=== PATIENT | female | born 1975 | race African-American/Black ===

== ENCOUNTER 2017-08-05 19:58 | Emergency (ER) | payer OTHER ==
[2017-08-05 20:09] VITALS: BP 150/95; PULSE 95; TEMP 98.5; BMI 30.2
--- NOTE | 2017-08-05 21:26 | PDOC ---
History of Present Illness - General Chief Complaint: Pain Stated Complaint: NUMBNESS Time Seen by Provider: 08/05/17 20:48 - History of Present Illness Initial Comments: 08/05/17 21:51 Ms. Marcano is a 42 yo female with a significant past medical history of panic disorder for which she has previously been proscribed xanax who presents to the emergency department with a several month history of hand and foot tingling. Starting today she has had the same feeling to the left of her mouth as well. She adds that she has been checked out for this previously and told to follow- up with a neurologist but has not yet been able to accomplish this. The patient denies chest pain, shortness of breath, headache and dizziness. Denies fever, chills, nausea, vomit, diarrhea and constipation. Denies dysuria, frequency, urgency and hematuria. Allergies: NKDA Past surgical history: Past History - Past Medical History Allergies/Adverse Reactions: Allergies Allergy/AdvReac Type Severity Reaction Status Date / Time No Known Allergies Allergy Verified 08/05/17 20:11 Home Medications: Ambulatory Orders Fluoxetine HCl [Prozac -] 20 mg PO DAILY 06/05/16 Mirtazapine [Remeron -] 15 mg PO DAILY 06/05/16 Anemia: No Asthma: Yes Cancer: No Cardiac Disorders: No CVA: No COPD: No CHF: No Dementia: No Diabetes: No GI Disorders: No Disorders: No HTN: No Hypercholesterolemia: No Kidney Stones: No Liver Disease: No Seizures: No Thyroid Disease: No - Reproductive History PID: No - Suicide/Smoking/Psychosocial Hx Smoking History: Current every day smoker Have you smoked in the past 12 months: Yes Number of Cigarettes Smoked Daily: 1 Information on smoking cessation initiated: No 'Breaking Loose' booklet given: 06/05/16 Hx Alcohol Use: Yes (social) Drug/Substance Use Hx: No Substance Use Type: Alcohol, Cocaine Hx Substance Use Treatment: No (rehab) Review of Systems - Review of Systems Comments:: 08/05/17 21:51 GENERAL/CONSTITUTIONAL: No fever or chills. No weakness. HEAD, EYES, EARS, NOSE AND THROAT: No change in vision. No ear pain or discharge. No sore throat. CARDIOVASCULAR: No chest pain or shortness of breath RESPIRATORY: No cough, wheezing, or hemoptysis. GASTROINTESTINAL: No nausea, vomiting, diarrhea or constipation. GENITOURINARY: No dysuria, frequency, or change in urination. MUSCULOSKELETAL: No joint or muscle swelling or pain. No neck or back pain. SKIN: No rash NEUROLOGIC: +Parasthesias to hands, feet, and left cheek. No headache, vertigo, loss of consciousness, or change in strength. ENDOCRINE: No increased thirst. No abnormal weight change HEMATOLOGIC/LYMPHATIC: No anemia, easy bleeding, or history of blood clots. ALLERGIC/IMMUNOLOGIC: No hives or skin allergy. *Physical Exam - Vital Signs Last Vital Signs Temp Pulse Resp BP Pulse Ox 98.5 F 95 H 18 150/95 100 08/05/17 19:59 08/05/17 19:59 08/05/17 19:59 08/05/17 19:59 08/05/17 19:59 - Physical Exam Comments: 08/05/17 21:52 GENERAL: Awake, alert, and fully oriented, in no acute distress HEAD: No signs of trauma, normocephalic, atraumatic EYES: PERRLA, EOMI, sclera anicteric, conjunctiva clear ENT: Auricles normal inspection, hearing grossly normal, nares patent, oropharynx clear without exudates. Moist mucosa NECK: Normal ROM, supple, no lymphadenopathy, JVD, or masses LUNGS: No distress, speaks full sentences, clear to auscultation bilaterally HEART: Regular rate and rhythm, normal S1 and S2, no murmurs, rubs or gallops, peripheral pulses normal and equal bilaterally. ABDOMEN: Soft, nontender, normoactive bowel sounds. No guarding, no rebound. No masses EXTREMITIES: Normal inspection, Normal range of motion, no edema. No clubbing or cyanosis. NEUROLOGICAL: Cranial nerves II through XII grossly intact. Normal speech, normal gait, no focal sensorimotor deficits SKIN: Warm, Dry, normal turgor, no rashes or lesions noted. ED Treatment Course - LABORATORY CBC & Chemistry Diagram: 08/05/17 22:50 08/05/17 22:50 Medical Decision Making - Medical Decision Making 08/05/17 23:30 Patient presents with chronic history of parasthesias to hands and face with new onset to face. Adult labs drawn as below. Patient stable, will discharge with instructions to follow-up with neurologist outpatient for further workup. Laboratory Results - last 24 hr 08/05/17 08/05/17 22:50 22:50 WBC 7.7 D RBC 3.93 Hgb 12.1 Hct 35.8 MCV 91.1 MCH 30.9 MCHC 33.9 RDW 14.5 Plt Count 327 D MPV 8.5 Neutrophils % 54.6 Lymphocytes % 37.0 Monocytes % 6.6 Eosinophils % 1.2 Basophils % 0.6 Sodium 139 Potassium 4.5 Chloride 105 Carbon Dioxide 25 Anion Gap 9 BUN 20 H Creatinine 0.9 Creat Clearance w eGFR > 60 Random Glucose 96 Calcium 8.7 Magnesium 2.0 Total Bilirubin 0.2 D AST 16 ALT 29 D Alkaline Phosphatase 136 H D Total Protein 7.1 Albumin 3.5 *DC/Admit/Observation/Transfer Diagnosis at time of Disposition: Tingling in extremities - Discharge Dispostion Disposition: HOME - Referrals Referrals: Krystal Bergman [Primary Care Provider] - Lazaro Miner MD [Staff Physician] - - Patient Instructions Printed Discharge Instructions: DI for Numbness/tingling
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
[2017-08-05 22:58] LABS: BASOPHIL 0.6 % (0-2.0); EOSINOPHIL 1.2 % (0-4.5); MCH 30.9 pg (25.7-33.7); MCHC 33.9 g/dl (32.0-36.0); MEAN CELL VOLUME 91.1 fl (80-96); MEAN PLT VOLUME 8.5 fl (7.5-11.1); NEUTROPHILS 54.6 % (42.8-82.8); PLATELET COUNT 327 K/MM3 (134-434); RDW 14.5 % (11.6-15.6); WHITE BLOOD COUNT 7.7 K/mm3 (4.0-10.0)
[2017-08-05 23:22] LABS: ALBUMIN 3.5 g/dl (3.4-5.0); ALK PHOS 136 U/L (45-117); ANION GAP 9 (8-16); BILIRUBIN,TOTAL 0.2 mg/dL (0.2-1.0); CALCIUM 8.7 mg/dL (8.5-10.1); CO2 25 mmol/L (21-32); CREATININE 0.9 mg/dL (0.55-1.02); GLUCOSE,RANDOM 96 mg/dL (74-106); SGOT/AST 16 U/L (15-37); SGPT/ALT 29 U/L (12-78); TOT PROT 7.1 g/dl (6.4-8.2)
== END 2017-08-05 23:38 | disposition home or self-care (01) ==
LOC: JERFT 19:58 → JER 19:58
DX: R20.2 Paresthesia of skin (principal); F41.0 Panic disorder [episodic paroxysmal anxiety]; F17.210 Nicotine dependence, cigarettes, uncomplicated; J45.909 Unspecified asthma, uncomplicated
CPT/HCPCS: 36415; 80053; 83735; 85025; 99281-25

== ENCOUNTER 2019-11-13 10:42 | Emergency (ER) | payer OTHER ==
[2019-11-13 10:49] VITALS: BP 108/75; PULSE 97; TEMP 98.1; BMI 27.3
[2019-11-13] MEDS ORDERED: CYCLOBENZAPRINE HCL 10 MG TABLET (FP) ONE (12:17)
[2019-11-13] MEDS ORDERED: KETOROLAC TROMETHAMINE 30 MG/1 ML VIAL ONE (12:17)
[2019-11-13] MEDS ORDERED: KETOROLAC TROMETHAMINE 15 MG/ML VIAL IM ONE (12:18)
[2019-11-13] MEDS ORDERED: CYCLOBENZAPRINE HCL 10 MG TABLET (FP) PO ONE (12:18)
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
[2019-11-13 12:55] LABS: PH,URINE 5.5 (5.0-8.0); URINE APPEARANCE CLEAR; URINE BILIRUBIN NEGATIVE (NEGATIVE); URINE COLOR DK YELLOW; URINE GLUCOSE (UA) NEGATIVE (NEGATIVE); URINE KETONE TRACE (NEGATIVE); URINE LEUK ESTERASE NEGATIVE (NEGATIVE); URINE NITRITE NEGATIVE (NEGATIVE); URINE PROTEIN TRACE (NEGATIVE)
== END 2019-11-13 14:03 | disposition home or self-care (01) ==
LOC: JER 10:42
PROC: 3E0233Z Introduction of Anti-inflammatory into Muscle, Percutaneous Approach (ICD-10-PCS; principal; 2019-11-13)
DX: M54.5 Low back pain (principal); R20.2 Paresthesia of skin; G62.9 Polyneuropathy, unspecified; Z87.828 Personal history of other (healed) physical injury and trauma
CPT/HCPCS: 81003; 84703; 87086; 96372; 99282-25

== ENCOUNTER 2022-01-08 11:07 | Emergency (ER) | payer OTHER ==
[2022-01-08 11:22] VITALS: BP 118/82; PULSE 84; TEMP 97.8; BMI 29.8
[2022-01-08] MEDS ORDERED: CYCLOBENZAPRINE HCL 10 MG TABLET (FP) PO ONE (12:06)
[2022-01-08] MEDS ORDERED: LIDOCAINE 5% TOPICAL PATCH TP ONE (12:07)
[2022-01-08] MEDS ORDERED: CYCLOBENZAPRINE HCL 10 MG TABLET (FP) ONE (12:11)
[2022-01-08] MEDS ORDERED: LIDOCAINE 5% TOPICAL PATCH ONE (12:11)
[2022-01-08] MEDS ORDERED: LIDOCAINE PATCH REMOVAL MC SCH (22:00)
== END 2022-01-08 12:50 | disposition home or self-care (01) ==
LOC: JERFT 11:07
DX: M62.830 Muscle spasm of back (principal); M54.50 Low back pain, unspecified
CPT/HCPCS: 84703; 99283-25